=== PATIENT | female | born 1940 | race African-American/Black ===

== ENCOUNTER 2016-10-01 08:39 | Inpatient (IN) | payer OTHER ==
[~2016-10-01] VITALS: Ht 165.1 cm; Wt 77.1 kg
--- NOTE | ~2016-10-01 | 2DMMODE ---
[place] [address] [facility] [address] [place] [address] 2 D/M-MODE ECHOCARDIOGRAM Name: SUSSY DENIS Room #: 315-P ADM IN M.R.#: [id number] Admission: 10/01/16 Attend Phys: Tl Stroud, Discharge: Date of : 38 Date of Service: 10/01/16 1542 Report #: [id number] THIS REPORT FOR: //name// APPROVED REPORT Study performed: 10/01/2016 13:07:23 EXAM: Comprehensive 2D, Doppler, and color-flow Echocardiogram Patient Location: Bedside Room #: 315 Blood Pressure: 121/59 mmHg Other Information Study Quality: Adequate Indications Atrial Fibrillation Chest Pain 2D Dimensions RVDd: 33.70 mm LVEF(%): 62.68 (>50%) IVSd: 13.24 (7-11mm) LVOT Diam: 22.13 (18-24mm) LVDd: 44.14 mm PWd: 11.80 (7-11mm) Ascending Ao: 32.91 (22-36mm) LVDs: 29.28 (25-40mm) Aortic Root: 32.19 mm IVC: 11.00 mm Humphreys's LVEF: 62.68 % Volumes Left Atrial Volume (Systole) Single Plane 4CH: 53.28 mL Single Plane 2CH: 25.29 mL LA ESV Index: 22.00 mL/m2 Aortic Valve AoV Peak Ga.: 1.88 m/s AO Peak Gr.: 14.21 mmHg LVOT Max P.20 mmHg LVOT Max V: 0.89 m/s TAMIKO Vmax: 1.82 cm2 Mitral Valve E/A Ratio: 0.8 MV Decel. Time: 263.83 ms [facility] [address] [place] [address] 2 D/M-MODE ECHOCARDIOGRAM Name: SHIKHAPOP LimaCE FRANSISCA Room #: 315-P [facility] IN M.R.#: [id number] Admission: 10/01/16 Attend Phys: Tl Stroud, Discharge: Date of : 38 Date of Service: 10/01/16 1542 Report #: [id number] MV E Max Ga.: 1.06 m/s MV A Ga.: 1.26 m/s MV PHT: 76.51 ms IVRT: 89.97 ms Pulmonary Valve PV Peak Ga.: 0.75 m/s PV Peak Gr.: 2.26 mmHg Pulmonary Vein P Vein S: 0.75 m/s P Vein A: 0.30 m/s P Vein D: 0.62 m/s P Vein A Dur.: 131.5 msec P Vein S/D Ratio: 1.21 Tricuspid Valve TR Peak Ga.: 3.32 m/s RAP Estimate: 10.00 mmHg TR Peak Gr.: 44.07 mmHg Left Ventricle The left ventricle is normal size. Mild concentric left ventricular hypertrophy. The left ventricular systolic function is normal. The left ventricular ejection fraction is within the normal range. LVEF is 60%. Mild diastolic dysfunction is present (impaired relaxation pattern). Right Ventricle The right ventricle is normal size. The right ventricular systolic function is normal. Atria The left atrium size is normal. The right atrium size is normal. Aortic Valve The aortic valve is sclerotic. No aortic regurgitation is present. There is no aortic valvular stenosis. Mitral Valve The mitral valve is normal in structure. Trace mitral regurgitation. No evidence of mitral valve stenosis. Tricuspid Valve The tricuspid valve is normal in structure. Mild tricuspid regurgitation. Pulmonic Valve The pulmonary valve is normal in structure. Trace pulmonic [facility] [address] [place] [address] 2 D/M-MODE ECHOCARDIOGRAM Name: SUSSY DENIS Room #: 315-P [facility] IN [facility]#: [id number] Admission: 10/01/16 Attend Phys: Tl Stroud, Discharge: Date of : 38 Date of Service: 10/01/16 1542 Report #: [id number] regurgitation. Great Vessels The aortic root is normal in size. The ascending aorta is normal in size. IVC is normal in size and collapses <50% with inspiration. <Conclusion> The left ventricle is normal size. Mild concentric left ventricular hypertrophy. The left ventricular systolic function is normal. Mild diastolic dysfunction is present (impaired relaxation pattern). The right ventricle is normal size. The left atrium size is normal. The right atrium size is normal. The aortic valve is sclerotic. There is no aortic valvular stenosis. Trace mitral regurgitation. Mild tricuspid regurgitation. <ELECTRONICALLY SIGNED> By: Phillip Taylor MD 10/01/16 1542 [id number] Phillip Taylor MD /INF
--- NOTE | ~2016-10-01 | EKG ---
[address] [address] ELECTROCARDIOGRAM REPORT Name: SUSSY DENIS Room #: 315-P ADM IN M.R.#: [id number] Admission: 10/01/16 Attend Phys: Tl Stroud MD Discharge: Date of : 38 Report #: [id number] THIS REPORT FOR: //name// [facility] ED Test Date: 2016-10-01 Test Time: 08:41:53 Pat Name: SUSSY DENIS Department: Room: [facility] Gender: F Assistant Store Manager Operations: Cammie CARPIO : 1940 Requested By: Shefali Calderón Order Number: [id number] MD: Amado Welch Measurements Intervals [place] Rate: 74 P: 47 [place]: 154 QRS: 46 QRSD: 145 T: 32 QT: 419 QTc: 465 Interpretive Statements Sinus rhythm Right bundle branch block Compared to ECG 04/21/2016 19:25:52 No significant changes Electronically Signed On 10-01-2016 15:58:55 CDT by Amado Welch [email or web address] <ELECTRONICALLY SIGNED> By: Amado Welch MD 10/01/16 1558 [phone] Amado Welch MD /JOSE
[~2016-10-01 08:39] MED LIST: ACETAMINOPHEN325 M1 PO; ACTOS 45 MG45 M1 PO; ALBUTEROL0.63 MG/3 IH; ALBUTEROL2.5 MG/3 M INH; ALMACONE LIQUI355 ML PO; AMARYL2 MG PO; AMOX TR-K CLV1 EAC4 PO; ANAPROX DS550 MG PO; APAP500 PO; ARICEPT 5 MG TAB5 MG PO; ARICEPT10 M1 PO; ASPIRIN EC81 M1 PO; ATIVAN0.5 MG PO; ATIVAN1 MG PO; AUGMENTIN 875875 MG PO; BENEFIBER DRIN PO; CALCIUM 500 WI1 EAC3 PO; CARDIZEM CD180 MG PO; CEFTIN 250 MG250 MG PO; CIPROFLOXACIN500 M1 PO; COLACE100 MG PO; DEPAKOTE ER500 MG PO; DILTIAZEM 24HR180 M2 PO; DUONEB 2.5-0.5 M3 ML INH; ELIQUIS5 MG PO; ENOXAPARIN40 MG/0.1 SUBQ; FISH OIL 1,001000 M2 PO; FLAGYL500 MG PO; GABAPENTIN100 MG PO; GLIPIZIDE XL10 MG PO; GLUCAGON EMERGEN1 MG IJ; GLUCOPHAGE1000 MG PO; GLUCOSE4 GM PO; HALDOL 0.5 MG0.5 MG PO; HUMALOG100 UNIT/1 SUBQ; HYDROCODON-ACE1 EAC7 PO; HYDROCODONE-AC120 ML PO; IBUPROFEN 800800 M1 PO; KEFLEX250 MG PO; LANTUS100 UNIT/M SQ; LASIX 20 MG TAB20 MG PO; LEVAQUIN 500 M500 M2 PO; LEVOTHROID100 MC1 PO; LEVOTHYROXIN0.112 M1 PO; LEVOXYL100 MCG PO; LEXAPRO 10 MG T10 M1 PO; LISINOPRIL10 MG PO; LOFIBRA200 MG PO; LOPERAMIDE 2 MG2 M1 PO; LORAZEPAM 0.50.5 MG PO; MAALOX MAXIMUM355 ML PO; MI ACID LIQUID355 ML PO; MIRALAX17 GM PO; MIRALAX255 GM PO; MIRTAZAPINE15 M2 PO; MOBIC15 MG PO; MOM PO; MUCINEX TA600 MG/TA2 PO; MYLANTA 12 OZ355 M1 PO; MYLANTA TABLET1 TA1 PO; NAMENDA XR28 MG PO; NAMZARIC 28 MG1 EACH PO; NAPROSYN500 MG PO; NEURONTIN 300300 M1 PO; NITROGLYCERIN0.4 MG SUBLING; NORCO 5-325 TA1 EACH PO; NOVOLOG100 UNIT/1; NOVOLOG100 UNIT/1 SQ; OCUFLOX10 ML; OLANZAPINE5 MG PO; PRILOSEC20 MG PO; PROBIOTIC1 EAC1 PO; PROTONIX 440 MG/VIA1; PROTONIX40 M2 PO; QUETIAPINE FUMA25 MG PO; RISPERDAL 1 MG T1 MG PO; RISPERDAL0.5 MG PO; SENNA S TABLET1 EACH PO; SEROQUEL 100 M100 M1 PO; SEROQUEL 25 MG25 M1 PO; SEROQUEL 50 MG50 MG PO; SEROQUEL XR150 MG PO; SYNTHROID125 MCG PO; SYNTHROID25 MCG PO; SYSTANE 0.3-0.1 EACH OPHTHALMIC; TRAMADOL 50 MG50 MG PO; TRAZODONE HCL50 MG PO; TRILIPIX135 MG PO; VICODIN 5-5001 EACH PO; VITAMIN D1000 UNI1 PO; XANAX 0.5 MG0.5 MG PO; ZOCOR20 MG PO; ZOFRAN ODT4 MG DISSOLVE; ZOFRAN4 MG PO; ZPAK PO
[2016-10-01 08:56] VITALS: BP 126/81
[2016-10-01 09:10] LABS: ABSOLUTE NEUTROPHILS 4.7 thou/uL (1.4-8.2); BASOPHILS 0.3 % (0.0-2.0); EOSINOPHILS 4.7 % (0.0-3.0); HEMATOCRIT 32.2 % (37.0-47.0); HEMOGLOBIN 10.3 gm/dL (12.0-15.0); LYMPHOCYTES 31.9 % (24.0-44.0); MCH 27.1 pg (26.0-34.0); MCHC 32.1 g/dL (28.0-37.0); MCV 84.5 fL (80.0-100.0); MONOCYTES 8.5 % (1.0-8.0); PLATELET COUNT 222 thou/uL (150-400); POLYS 54.6 % (36.0-66.0); RBC 3.81 mil/uL (4.20-5.00); RDW 16.7 % (10.5-14.5); WBC 8.6 thou/uL (4.0-11.0)
[2016-10-01 09:11] LABS: MANUAL DIFF NO
[2016-10-01 09:22] LABS: ANION GAP 5 mmol/L (7-16); BUN 23 mg/dL (7-18); CALCIUM 8.7 mg/dL (8.5-10.1); CHLORIDE 102 mmol/L (98-107); CO2 30 mmol/L (21-32); CREATININE 1.2 mg/dL (0.6-1.0); GLUCOSE 166 mg/dL (74-106); POTASSIUM 4.6 mmol/L (3.5-5.1); SODIUM 137 mmol/L (136-145)
[2016-10-01 09:30] LABS: TROPONIN-I < 0.04 ng/mL (<0.04-0.07)
[2016-10-01 10:12] LABS: URINE BILIRUBIN NEGATIVE (Negative); URINE BLOOD NEGATIVE (Negative); URINE COLOR YELLOW; URINE GLUCOSE-RANDOM* NEGATIVE (Negative); URINE KETONES NEGATIVE (Negative); URINE NITRITE NEGATIVE (Negative); URINE PROTEIN (DIPSTICK) NEGATIVE (Negative); URINE SPECIFIC GRAVITY <= 1.005 (1.003-1.035); URINE UROBILINOGEN 0.2 E.U./dl (0.2-1.0)
[2016-10-01 11:55] VITALS: BP 128/64
[2016-10-01 17:30] VITALS: BP 137/55
[2016-10-01 20:00] VITALS: BP 137/75
[2016-10-01] MEDS ORDERED: LASIX 40 MG TAB40 M2 PO (23:13)
[2016-10-01] MEDS ORDERED: GABAPENTIN 100100 MG PO (23:14)
[2016-10-01] MEDS ORDERED: BIOFREEZE118 ML TP (23:17)
[2016-10-01] MEDS ORDERED: OMEPRAZOLE20 M2 PO (23:23)
[2016-10-01] MEDS ORDERED: LEVEMIR SUBQ (23:24)
[2016-10-01] MEDS ORDERED: XANAX 0.25 MG0.25 MG PO (23:30)
[2016-10-01] MEDS ORDERED: NOVOLOG100 UNIT/1 SUBQ (23:31)
[2016-10-02 04:00] VITALS: BP 139/63
[2016-10-02 06:42] LABS: CHOLESTEROL 240 mg/dL (<200); HDL CHOLESTEROL 37 mg/dL (>40); LDL CHOLESTEROL 130 mg/dL (<100); TC:HDL 6.5 Ratio (Not establshd); TRIGLYCERIDE 365 mg/dL (<150); VLDL 73 mg/dL (<40)
[2016-10-02 08:15] VITALS: BP 144/65
[2016-10-02 09:22] LABS: CALCIUM 8.5 mg/dL (8.5-10.1); CREATININE 1.1 mg/dL (0.6-1.0); POTASSIUM 4.8 mmol/L (3.5-5.1)
== END 2016-10-02 13:49 | DRG 683 ==
LOC: ER 08:39 → EROBS 10:08 → 3N 10:08
PROVIDERS: Emergency Medicine; Nurse Practitioner; Physician Assistant
DX: N17.9 Acute kidney failure, unspecified (principal); J84.9 Interstitial pulmonary disease, unspecified; R07.89 Other chest pain; F03.90 Unspecified dementia, unspecified severity, without behavioral disturbance, psychotic disturbance, mood disturbance, and anxiety; E78.00 Pure hypercholesterolemia, unspecified; F41.9 Anxiety disorder, unspecified; E03.9 Hypothyroidism, unspecified; D64.9 Anemia, unspecified; E78.5 Hyperlipidemia, unspecified; K21.9 Gastro-esophageal reflux disease without esophagitis; N18.2 Chronic kidney disease, stage 2 (mild); I48.0 Paroxysmal atrial fibrillation; E11.22 Type 2 diabetes mellitus with diabetic chronic kidney disease; Z87.891 Personal history of nicotine dependence; Z98.42 Cataract extraction status, left eye; Z90.710 Acquired absence of both cervix and uterus; Z98.41 Cataract extraction status, right eye; Z88.6 Allergy status to analgesic agent; Z88.8 Allergy status to other drugs, medicaments and biological substances
CPT/HCPCS: 10096

== ENCOUNTER 2017-06-01 17:31 | Inpatient (IN) | payer OTHER ==
[~2017-06-01] VITALS: Ht 152.4 cm; Wt 68.0 kg
--- NOTE | ~2017-06-01 | EKG ---
[place] [address] [employer] [facility] [place] [address] ELECTROCARDIOGRAM REPORT Name: POP DENISCE FRANSISCA Room #: 354-P ADM IN M.R.#: [id number] Admission: 06/01/17 Attend Phys: Calin Schwab DO Discharge: Date of : 38 Report #: [id number] THIS REPORT FOR: //name// [facility] ED Test Date: 2017-06-01 Test Time: 17:50:26 Pat Name: SUSSY DENIS Department: Room: 354 Gender: F Director Of National Sales: JUAN : 1940 Requested By: Shefali Calderón Order Number: [id number] MD: Amado Welch Measurements Intervals [place] Rate: 72 P: 60 [place]: 143 QRS: 47 QRSD: 143 T: 8 QT: 429 QTc: 470 Interpretive Statements Sinus rhythm Right bundle branch block Compared to ECG 10/01/2016 08:41:53 No significant changes Electronically Signed On 06-02-2017 8:16:57 TITLE DEPARTMENT MANAGER by Amado Welch [email or web address] <ELECTRONICALLY SIGNED> By: Amado Welch MD 06/02/17 0816 49 49 Amado Welch MD /JOSE
[~2017-06-01 17:31] MED LIST changes: +BIOFREEZE118 ML TP; +GABAPENTIN 100100 MG PO; +LASIX 40 MG TAB40 M2 PO; +LEVEMIR SUBQ; +NOVOLOG100 UNIT/1 SUBQ; +OMEPRAZOLE20 M2 PO; +XANAX 0.25 MG0.25 MG PO
[2017-06-01 17:33] VITALS: BP 146/63
[2017-06-01 19:11] LABS: ABSOLUTE NEUTROPHILS 5.4 thou/uL (1.4-8.2); BASOPHILS 0.8 % (0.0-2.0); EOSINOPHILS 3.6 % (0.0-3.0); HEMATOCRIT 29.3 % (37.0-47.0); HEMOGLOBIN 9.2 gm/dL (12.0-15.0); LYMPHOCYTES 32.8 % (24.0-44.0); MCH 24.6 pg (26.0-34.0); MCHC 31.4 g/dL (28.0-37.0); MCV 78.3 fL (80.0-100.0); MONOCYTES 7.7 % (1.0-8.0); PLATELET COUNT 252 thou/uL (150-400); POLYS 55.1 % (36.0-66.0); RBC 3.74 mil/uL (4.20-5.00); RDW 17.8 % (10.5-14.5); WBC 9.7 thou/uL (4.0-11.0)
[2017-06-01 19:20] LABS: URINE BILIRUBIN NEGATIVE (Negative); URINE BLOOD NEGATIVE (Negative); URINE CLARITY CLEAR; URINE COLOR YELLOW; URINE GLUCOSE-RANDOM* TRACE (Negative); URINE KETONES NEGATIVE (Negative); URINE LEUKOCYTES NEGATIVE (Negative); URINE NITRITE NEGATIVE (Negative); URINE PROTEIN (DIPSTICK) NEGATIVE (Negative); URINE UROBILINOGEN 0.2 E.U./dl (0.2-1.0)
[2017-06-01 19:23] LABS: CALCIUM 8.7 mg/dL (8.5-10.1); CREATININE 1.5 mg/dL (0.6-1.0); POTASSIUM 5.2 mmol/L (3.5-5.1)
[2017-06-01] MEDS ORDERED: MULTI-VITAMIN1 EAC5 PO (20:35)
[2017-06-01] MEDS ORDERED: GLUCOSE TABS PO (20:35)
[2017-06-01] MEDS ORDERED: SYSTANE 0.3-0.415 ML OPHTHALMIC (20:37)
[2017-06-01] MEDS ORDERED: POTASSIUM20 PO (20:38)
[2017-06-01] MEDS ORDERED: TYLENOL325 MG PO (20:39)
[2017-06-01] MEDS ORDERED: LISINOPRIL10 MG PO (20:39)
[2017-06-01] MEDS ORDERED: ARICEPT 5 MG TAB5 MG PO (20:40)
[2017-06-01] MEDS ORDERED: VITAMIN D22000 UNIT PO (20:41)
[2017-06-01] MEDS ORDERED: VENTOLIN HFA 1818 GM INH (20:42)
[2017-06-01] MEDS ORDERED: HYDRALAZINE 10M10 MG PO (20:43)
[2017-06-01] MEDS ORDERED: OCUFLOX5 ML OPHTHALMIC (20:44)
[2017-06-01] MEDS ORDERED: NAMENDA XR28 MG PO (20:44)
[2017-06-01] MEDS ORDERED: ONDANSETRON ODT4 MG PO (20:45)
[2017-06-01] MEDS ORDERED: CITALOPRAM HBR40 MG PO (20:45)
[2017-06-01] MEDS ORDERED: DEPAKOTE500 MG PO (20:46)
[2017-06-01 21:15] VITALS: BP 144/61
[2017-06-01 23:14] VITALS: BP 142/61
[2017-06-02 01:08] VITALS: BP 110/45
[2017-06-02 04:00] VITALS: BP 127/55
[2017-06-02 05:30] LABS: HEMATOCRIT 27.4 % (37.0-47.0); HEMOGLOBIN 8.6 gm/dL (12.0-15.0); MCH 24.6 pg (26.0-34.0); MCHC 31.5 g/dL (28.0-37.0); RBC 3.51 mil/uL (4.20-5.00); RDW 17.8 % (10.5-14.5); WBC 8.1 thou/uL (4.0-11.0)
[2017-06-02 05:39] LABS: CALCIUM 8.1 mg/dL (8.5-10.1); CREATININE 1.2 mg/dL (0.6-1.0); POTASSIUM 4.7 mmol/L (3.5-5.1)
[2017-06-02 09:07] VITALS: BP 147/66
[2017-06-02 12:31] VITALS: BP 145/75
[2017-06-02 17:14] VITALS: BP 137/82
[2017-06-02 18:26] LABS: % SATURATION 8 % (20-39); IRON 29 ug/dL (50-170); TIBC 382 ug/dL (250-450)
[2017-06-02 18:58] LABS: TSH 3.729 uIU/mL (0.358-3.740)
[2017-06-02 19:22] VITALS: BP 156/69
[2017-06-03 04:30] VITALS: BP 137/70
[2017-06-03 07:10] VITALS: BP 148/61
[2017-06-03 16:03] VITALS: BP 139/65
[2017-06-03 20:00] VITALS: BP 158/69
[2017-06-03 22:12] LABS: ABSOLUTE NEUTROPHILS 10.5 thou/uL (1.4-8.2); BASOPHILS 0.7 % (0.0-2.0); EOSINOPHILS 1.4 % (0.0-3.0); HEMATOCRIT 35.2 % (37.0-47.0); MCH 29.7 pg (26.0-34.0); MCHC 33.8 g/dL (28.0-37.0); POLYS 83.9 % (36.0-66.0); RDW 13.9 % (10.5-14.5); WBC 12.4 thou/uL (4.0-11.0)
[2017-06-03 22:15] LABS: HEMOGLOBIN 11.9 gm/dL (12.0-15.0); MCV 87.9 fL (80.0-100.0)
[2017-06-03 22:18] LABS: PLATELET COUNT 317 thou/uL (150-400)
[2017-06-04 04:00] VITALS: BP 128/60
[2017-06-04 07:22] VITALS: BP 142/55
[2017-06-04] MEDS ORDERED: CEFUROXIME500 MG PO (08:49)
[2017-06-04] MEDS ORDERED: SEROQUEL 50 MG50 M1 PO (08:50)
[2017-06-04] MEDS ORDERED: SEROQUEL 25 MG25 M1 PO (08:50)
== END 2017-06-04 16:46 | DRG 871 ==
LOC: ER 17:31 → 3W 19:47 → EROBS 19:47 → 3W 21:02
PROVIDERS: Emergency Medicine; Nurse Practitioner Family; Registered Nurse
DX: A41.9 Sepsis, unspecified organism (principal); G92 Toxic encephalopathy; J18.1 Lobar pneumonia, unspecified organism; N17.9 Acute kidney failure, unspecified; F03.91 Unspecified dementia, unspecified severity, with behavioral disturbance; E78.00 Pure hypercholesterolemia, unspecified; F41.9 Anxiety disorder, unspecified; K21.9 Gastro-esophageal reflux disease without esophagitis; N18.2 Chronic kidney disease, stage 2 (mild); G89.29 Other chronic pain; M54.9 Dorsalgia, unspecified; E11.22 Type 2 diabetes mellitus with diabetic chronic kidney disease; F03.90 Unspecified dementia, unspecified severity, without behavioral disturbance, psychotic disturbance, mood disturbance, and anxiety; I48.0 Paroxysmal atrial fibrillation; F29 Unspecified psychosis not due to a substance or known physiological condition; D64.9 Anemia, unspecified; R41.0 Disorientation, unspecified; Z90.710 Acquired absence of both cervix and uterus; Z98.42 Cataract extraction status, left eye; Z98.41 Cataract extraction status, right eye; Z88.6 Allergy status to analgesic agent; Z88.8 Allergy status to other drugs, medicaments and biological substances; Z87.891 Personal history of nicotine dependence; Z79.82 Long term (current) use of aspirin; Z79.899 Other long term (current) drug therapy
CPT/HCPCS: 10879